=== PATIENT | female | born 1945 | race Caucasian/White ===

== ENCOUNTER 2017-07-12 14:25 | Emergency (ER) | payer MEDICARE, BC ==
--- NOTE | 2017-07-12 14:40 | Emergency Department Record ---
History of Present Illness - General Chief Complaint: Numbness Stated Complaint: SLURRED SPEECH/ARM NUMBNESS Time Seen by Provider: 07/12/17 14:34 Mode of Arrival: Ambulatory - History of Present Illness Initial Comments: slurred speech and numbness in both arms more the left started 30 minutes ago and lasted for 15 minutes. Patient denies headache and no chest pain and not SOB and no abdominal pain. Onset/Timin -: Hour(s) Location: Left arm, Right arm, Speech History of same: No Place: Home Severity: Mild Quality: Improving, Numb Improves With: None Worsens With: None On Anticoagulants: No Associated Symptoms: Denies other symptoms Treatments Prior to Arrival: None - Deejay Coma Scale Eye Response: (4) Open spontaneously Motor Response: (6) Obeys commands Verbal Response: (5) Oriented [place] Total: 15 - Related Data Allergies/Adverse Reactions: Allergies Allergy/AdvReac Type Severity Reaction Status Date / Time Sulfa (Sulfonamide Allergy ANAPHYLAXIS Verified 07/12/17 14:27 Antibiotics) Travel Screening - Travel/Exposure Within Last 30 Days Have you traveled within the last 30 days?: No - Travel/Exposure Within Last Year Have you traveled outside the [place] in the last year?: No - Additonal Travel Details Have you been exposed to anyone with a communicable illness?: No - Travel Symptoms Symptom Screening: None Review of Systems Reviewed: No additional complaints except as noted below Constitutional: Reports: As per HPI. Denies: Chills, Fever, Malaise, Night sweats, Weakness, Weight change Eyes: Reports: As per HPI. Denies: Eye discharge, Eye pain, Photophobia, Vision change ENT: Reports: As per HPI. Denies: Congestion, Dental pain, Ear pain, Epistaxis , Hearing loss, Throat pain Respiratory: Reports: As per HPI. Denies: Cough, Dyspnea, Hemoptysis, Stridor, Wheezes Cardiovascular: Reports: As per HPI. Denies: Arrhythmia, Chest pain, Dyspnea on exertion, Edema, Murmurs, Orthopnea, Palpitations, Paroxysmal nocturnal dyspnea, Rheumatic Fever, Syncope Endocrine: Reports: As per HPI. Denies: Fatigue, Heat or cold intolerance, Polydipsia, Polyuria Gastrointestinal: Reports: As per HPI. Denies: Abdominal pain, Constipation, Diarrhea, Hematemesis, Hematochezia, Melena, Nausea, Vomiting Genitourinary: Reports: As per HPI. Denies: Abnormal menses, Discharge, Dyspareunia, Dysuria, Frequency, Hematuria, Incontinence, Retention, Urgency Musculoskeletal: Reports: As per HPI. Denies: Arthralgia, Back pain, Gout, Joint swelling, Myalgia, Neck pain Skin: Reports: As per HPI. Denies: Bruising, Change in color, Change in hair/ nails, Lesions, Pruritus, Rash Neurological: Reports: As per HPI. Denies: Abnormal gait, Confusion, Headache, Numbness, Paresthesias, Seizure, Tingling, Tremors, Vertigo, Weakness Psychiatric: Reports: As per HPI. Denies: Anxiety, Auditory hallucinations, Depression, Homicidal thoughts, Suicidal thoughts, Visual hallucinations Hematological/Lymphatic: Reports: As per HPI. Denies: Anemia, Blood Clots, Easy bleeding, Easy bruising, Swollen glands Past Medical History - SOCIAL HISTORY Smoking Status: Current every day smoker Alcohol Use: None Drug Use: None - RESPIRATORY Hx Respiratory Disorders: No - CARDIOVASCULAR Hx Cardio Disorders: No - NEURO Hx Neuro Disorders: Yes Hx Headaches: Yes (hx Migraines) - GI Hx GI Disorders: No - Hx Genitourinary Disorders: No - ENDOCRINE Hx Endocrine Disorders: No - MUSCULOSKELETAL Hx Musculoskeletal Disorders: Yes Hx Arthritis: Yes Hx Back Injury: Yes - PSYCH Hx Psych Problems: Yes Hx Anxiety: Yes Hx Depression: Yes - HEMATOLOGY/ONCOLOGY Hx Hematology/Oncology Disorders: Yes Hx Cancer: Yes (uterine) Hx Chemotherapy: No Hx Radiation Therapy: No Family Medical History Any Significant Family History?: No Physical Exam - General General Appearance: Alert, Oriented x3, Cooperative, No acute distress - Head Head exam: Normal inspection - Eye Eye exam: Normal appearance, PERRL Pupils: Normal accommodation - ENT ENT exam: Normal exam, Mucous membranes moist, Normal external ear exam, Normal orophraynx, TM's normal bilaterally Ear exam: Normal external inspection. negative: External canal tenderness Nasal Exam: Normal inspection. negative: Discharge, Sinus tenderness Mouth exam: Normal external inspection, Tongue normal Teeth exam: Normal inspection. negative: Dental caries Throat exam: Normal inspection. negative: Tonsillar erythema, Tonsillar exudate - Neck Neck exam: Normal inspection, Full ROM. negative: Tenderness - Respiratory Respiratory exam: Normal lung sounds bilaterally. negative: Respiratory distress - Cardiovascular Cardiovascular Exam: Regular rate, Normal rhythm, Normal heart sounds - GI/Abdominal GI/Abdominal exam: Soft, Normal bowel sounds. negative: Tenderness - Rectal Rectal exam: Deferred - exam: Deferred - Extremities Extremities exam: Normal inspection, Full ROM, Normal capillary refill. negative: Tenderness - Back Back exam: Reports: Normal inspection, Full ROM. Denies: Muscle spasm, Rash noted, Tenderness - Neurological Neurological exam: Alert, Normal gait, Oriented X3, Reflexes normal - Psychiatric Psychiatric exam: Normal affect, Normal mood - Skin Skin exam: Dry, Intact, Normal color, Warm Course Vital Signs 07/12/17 14:29 Temperature 97.5 F L Pulse Rate 78 Respiratory 20 Rate Blood Pressure 137/63 Pulse Ox 98 - Reevaluation(s) Reevaluation #1: patient feels completely better. no numbness and no speech problems 07/12/17 16:04 Reevaluation #2: neuro check negative glascow 15 07/12/17 16:06 Medical Decision Making - Data Complexity MDM Data: Labs Ordered and/or Reviewed, X-Ray Ordered and/or Reviewed (CT of head no acute changes and chest xray COPD) - Lab Data Result diagrams: 07/12/17 14:50 07/12/17 14:50 Disposition Clinical Impression: TIA (transient ischemic attack) Qualifiers: Transient cerebral ischemia type: unspecified Qualified Code(s): G45.9 - Transient cerebral ischemic attack, unspecified Disposition: Home, Self-Care Condition: (1) Good Instructions: Transient Ischemic Attack (ED) Additional Instructions: follow up with family in 5 days to 7 days aspirin 81 mg per day Forms: Patient Portal Access Time of Disposition: 16:11 Quality - Quality Measures Quality Measures: N/A - Blood Pressure Screening Does Patient Have Any of the Following: No Blood Pressure Classification: Pre-Hypertensive BP Reading Systolic Measurement: 137 Diastolic Measurement: 63 Screening for High Blood Pressure: < Pre-Hypertensive BP, F/U Documented > [ G8950] Pre-Hypertensive Follow-up Interventions: Referral to alternative/primary care provider.
[2017-07-12 15:08] LABS: BASO % 0.2 % (0-6); EOS % 0.5 % (0-6); GRAN % 65.1 % (47-80); HEMATOCRIT 42.6 % (35.0-47.0); HEMOGLOBIN 14.3 gm/dl (11.6-16.0); LYMPH % 23.3 % (16-45); MEAN CELL VOLUME 93.2 fl (81-97); MEAN CORPUSCULAR HEMOGLOBIN 31.3 pg (27-33); MEAN CORPUSCULAR HGB CONC 33.6 g/dl (32-36); MONO % 10.9 % (0-9); PLATELET COUNT 349 K/uL (130-400); RED BLOOD COUNT 4.57 M/uL (3.80-5.40); RED CELL DISTRIBUTION WIDTH 13.3 % (11.5-14.5); WHITE BLOOD COUNT W/O DIFF 8.4 K/uL (4.2-12.2)
[2017-07-12 15:21] LABS: BLOOD UREA NITROGEN 8 mg/dL (8-23); CREATININE 0.9 mg/dL (0.5-0.9); EST GLOMERULAR FILTRATION RATE > 60 mL/min
[2017-07-12 15:23] LABS: PARTIAL THROMBOPLASTIN TIME 32.6 SECONDS (24.5-39.1); PROTHROMBIN TIME (PATIENT) 11.1 SECONDS (9.5-12.1)
[2017-07-12 15:24] LABS: GLUCOSE,RANDOM 102 mg/dL (74-109)
[2017-07-12] MEDS ORDERED: ASPIRIN 81 MG CHEWABLE TABLET PO ONE (16:04)
--- NOTE | 2017-07-14 08:37 | RADIOLOGY REPORT ---
EXAM: CHEST, TWO VIEWS HISTORY: SLURRED SPEECH, NUMBNESS BOTH ARMS. TECHNIQUE: PA and lateral views of the chest were obtained. Comparison: Two view chest 09/15/12. FINDINGS: The heart size is normal. The lungs appear somewhat hyperinflated suggesting underlying COPD. No definite acute infiltrate is seen and no pleural effusion or pneumothorax evident. Mild apical pleural thickening bilaterally. Mild spurring in the spine. IMPRESSION: 1. HYPERINFLATION SUGGESTING COPD. 2. NO ACUTE INFILTRATE EVIDENT. 3. APICAL PLEURAL THICKENING BILATERALLY. JOB NUMBER: [id number] [facility]
--- NOTE | 2017-07-14 08:41 | CT SCAN REPORT ---
EXAM: HEAD CT HISTORY: SLURRED SPEECH AND NUMBNESS BOTH ARMS. TECHNIQUE: Axial CT scan of the head was performed without IV contrast. Comparison: None. FINDINGS: No definite acute intracranial hemorrhage identified. No focal mass effect or midline shift apparent. Mild generalized atrophy with some chronic appearing deep white matter changes, nonspecific but likely representing some chronic small vessel deep white matter ischemic disease. No definite acute infarct or intracranial mass lesion seen. Mild deviation of the nasal septum to the left. IMPRESSION: 1. MILD GENERALIZED ATROPHY WITH SOME MILD CHRONIC APPEARING DEEP WHITE MATTER CHANGES. 2. NO ACUTE INTRACRANIAL HEMORRHAGE OR FOCAL MASS EFFECT EVIDENT. JOB NUMBER: [id number] [facility]
== END 2017-07-12 16:31 | disposition home or self-care (01) ==
LOC: ER 14:25
DX: G45.9 Transient cerebral ischemic attack, unspecified (principal); F17.210 Nicotine dependence, cigarettes, uncomplicated
CPT/HCPCS: 70450; 71046; 80048; 85025; 85610; 85730; 93005; 93010; 99284

== ENCOUNTER 2018-12-13 14:35 | Emergency (ER) | payer MEDICARE, BC ==
[2018-12-13] MEDS ORDERED: HYDROCODONE/APAP 5/325MG TABLET PO ONE (15:25)
--- NOTE | 2018-12-13 15:27 | Emergency Department Record ---
History of Present Illness - General Chief complaint: Extremity Problem Stated complaint: FALL/L WRIST INJURY Time Seen by Provider: 12/13/18 14:44 Source: Patient Mode of Arrival: Ambulatory Limitations: No limitations - History of Present Illness Initial comments: The patient is here due to tripping and falling and injuring her L wrist. She denies any other injuries and did not hit her head or hurt her neck. The patient is not on any blood thinners. MD Complaint: Extremity pain Onset/Timin -: Minutes(s) Location: Left, Arm History of Same: No Severity scale (1-10): 10 Quality: Aching Consistency: Constant Improves with: Cold therapy, Immobilization Worsens with: Exertion, Palpation Associated Symptoms: Denies other symptoms - Related Data Home Medications Medication Instructions Recorded Confirmed Last Taken Duloxetine HCl 12/13/18 Unknown Duloxetine HCl 30 mg PO DAILY 12/13/18 12/13/18 12/13/18 Meloxicam 15 mg PO DAILY 12/13/18 12/13/18 12/13/18 Previous Rx's Medication Instructions Recorded Hydrocodone/Acetaminophen [[place] 1 each PO QID #12 tablet 12/13/18 5-325 Tablet] Allergies Allergy/AdvReac Type Severity Reaction Status Date / Time Sulfa (Sulfonamide Allergy ANAPHYLAXIS Verified 12/13/18 14:44 Antibiotics) Travel Screening - Travel/Exposure Within Last 30 Days Have you traveled within the last 30 days?: No - Travel/Exposure Within Last Year Have you traveled outside the [place] in the last year?: No - Additonal Travel Details Have you been exposed to anyone with a communicable illness?: No - Travel Symptoms Symptom Screening: None Review of Systems Constitutional: Denies: Chills, Fever Eyes: Denies: Eye discharge ENT: Denies: Congestion Respiratory: Denies: Cough, Dyspnea Past Medical History - SOCIAL HISTORY Smoking Status: Current every day smoker Alcohol Use: None Drug Use: None - RESPIRATORY Hx Respiratory Disorders: No - CARDIOVASCULAR Hx Cardio Disorders: No - NEURO Hx Neuro Disorders: Yes Hx Headaches: Yes (hx Migraines) - GI Hx GI Disorders: No - Hx Genitourinary Disorders: No - ENDOCRINE Hx Endocrine Disorders: No - MUSCULOSKELETAL Hx Musculoskeletal Disorders: Yes Hx Arthritis: Yes Hx Back Injury: Yes - PSYCH Hx Psych Problems: Yes Hx Anxiety: Yes Hx Depression: Yes - HEMATOLOGY/ONCOLOGY Hx Hematology/Oncology Disorders: Yes Hx Cancer: Yes (uterine) Hx Chemotherapy: No Hx Radiation Therapy: No Family Medical History Any Significant Family History?: No Physical Exam - General General Appearance: Alert, Oriented x3, Cooperative, No acute distress - Head Head exam: Atraumatic, Normocephalic, Normal inspection - Eye Eye exam: Normal appearance, PERRL - Neck Neck exam: Normal inspection, Full ROM. negative: Tenderness (There is no Cspine tenderness.) - Respiratory Respiratory exam: Normal lung sounds bilaterally. negative: Respiratory distress - Cardiovascular Cardiovascular Exam: Regular rate, Normal rhythm, Normal heart sounds - GI/Abdominal GI/Abdominal exam: Soft, Normal bowel sounds. negative: Tenderness - Extremities Extremities exam: Tenderness (There is mild swelling to the L distal radius with mod tenderness. The L hand is NVI with normal sensation and pulses.). negative: Normal inspection, Full ROM - Neurological Neurological exam: Alert, Normal gait. negative: Abnormal gait, Motor sensory deficit Course Vital Signs 12/13/18 14:48 Temperature 97.3 F L Pulse Rate 90 Respiratory 20 Rate Blood Pressure 143/80 Pulse Ox 97 - Reevaluation(s) Reevaluation #1: I did discuss the need to splint the L wrist with the patient and the need for referral to Dr. Boyce in the [facility]. The patient understands and agrees to the plan. 12/13/18 15:29 Medical Decision Making - Data Complexity MDM Data: X-Ray Ordered and/or Reviewed - Radiology Data Radiology results: Report reviewed (L wrist: Distal L radius and ulna fx with minimal angulation and impaction. ) Disposition Disposition: Discharge Clinical Impression: Wrist fracture, left Qualifiers: Encounter type: initial encounter Fracture type: closed Qualified Code(s): S62.102A - Fracture of unspecified carpal bone, left wrist, initial encounter for closed fracture Disposition: Home, Self-Care Condition: (2) Stable Instructions: Wrist Fracture in Adults (ED) Additional Instructions: Please ice and elevate the L wrist and wear the splint at all times. Use the [place] for pain and please see Dr. Boyce in the [facility] next week. Return to the ER for any worsening pain, numbness, or fever. Prescriptions: Hydrocodone/Acetaminophen [[place] 5-325 Tablet] 1 each PO QID #12 tablet Referrals: [facility] [Provider Group] Forms: Patient Portal Access Time of Disposition: 15:32 Quality - Quality Measures Quality Measures: N/A - Blood Pressure Screening View Details: Yes Does Patient Have Any of the Following: No Blood Pressure Classification: Hypertensive Reading Systolic Measurement: 142 Diastolic Measurement: 77 Screening for High Blood Pressure: < First Hypertensive BP, F/U Documented > [G8950] First Hypertensive Follow-up Interventions: Referral to alternative/primary care provider.
--- NOTE | 2018-12-13 15:58 | RADIOLOGY REPORT ---
EXAMINATION: Left Wrist Complete, Minimum Three Views EXAM DATE: 12/13/2018 3:15 PM TECHNIQUE: PA, lateral, and oblique images of the left wrist obtained. INDICATION: injury COMPARISON: None ENCOUNTER: Initial FINDINGS: There is diffuse bony demineralization. There is transverse fracture of distal left radius as well as fracture of the ulnar styloid both minimally displaced. There may be intra-articular extension at th e radial ulnar joint. There is mild soft tissue swelling. No additional fracture is seen. IMPRESSION: Fractures distal left radius and ulna as above. Dictated by: Alan Donohue MD on 12/13/2018 3:54 PM. .
== END 2018-12-13 15:58 | disposition home or self-care (01) ==
LOC: ER 14:35
DX: S52.502A Unspecified fracture of the lower end of left radius, initial encounter for closed fracture (principal); S52.612A Displaced fracture of left ulna styloid process, initial encounter for closed fracture; W01.198A Fall on same level from slipping, tripping and stumbling with subsequent striking against other object, initial encounter; F17.210 Nicotine dependence, cigarettes, uncomplicated
CPT/HCPCS: 99284

== ENCOUNTER 2018-12-16 15:53 | Emergency (ER) | payer MEDICARE, BC ==
--- NOTE | 2018-12-16 16:34 | Emergency Department Record ---
History of Present Illness - General Chief complaint: Extremity Problem Stated complaint: RECHECK Time Seen by Provider: 12/16/18 16:31 Source: Patient Mode of Arrival: Ambulatory Limitations: No limitations - History of Present Illness Initial comments: The patient is here for recheck due to having suffered a L distal radius and ulna fx 3 days ago and being splinted here in the ER. Now she feels the splint may be cutting into her arm. She denies any numbness or tingling. MD Complaint: Extremity pain Onset/Timin -: Days(s) Location: Left, Forearm Severity scale (1-10): 7 Quality: Aching - Related Data Previous Rx's Medication Instructions Recorded Hydrocodone/Acetaminophen [[place] 1 each PO QID #12 tablet 12/13/18 5-325 Tablet] Allergies Allergy/AdvReac Type Severity Reaction Status Date / Time Sulfa (Sulfonamide Allergy ANAPHYLAXIS Verified 12/16/18 16:09 Antibiotics) Travel Screening - Travel/Exposure Within Last 30 Days Have you traveled within the last 30 days?: No - Travel/Exposure Within Last Year Have you traveled outside the [place] in the last year?: No - Additonal Travel Details Have you been exposed to anyone with a communicable illness?: No - Travel Symptoms Symptom Screening: None Review of Systems Constitutional: Denies: Chills, Fever Past Medical History - SOCIAL HISTORY Smoking Status: Current every day smoker Alcohol Use: None, Rare Drug Use: None - RESPIRATORY Hx Respiratory Disorders: No - CARDIOVASCULAR Hx Cardio Disorders: No - NEURO Hx Neuro Disorders: Yes Hx Headaches: Yes (hx Migraines) - GI Hx GI Disorders: No - Hx Genitourinary Disorders: No - ENDOCRINE Hx Endocrine Disorders: No - MUSCULOSKELETAL Hx Musculoskeletal Disorders: Yes Hx Arthritis: Yes Hx Back Injury: Yes - PSYCH Hx Psych Problems: Yes Hx Anxiety: Yes Hx Depression: Yes - HEMATOLOGY/ONCOLOGY Hx Hematology/Oncology Disorders: Yes Hx Cancer: Yes (uterine) Hx Chemotherapy: No Hx Radiation Therapy: No Family Medical History Any Significant Family History?: Yes Physical Exam - General General Appearance: Alert, Cooperative, No acute distress - Head Head exam: Atraumatic - Eye Eye exam: Normal appearance - Extremities Extremities exam: negative: Normal inspection (The L wrist area is mildly swollen with no blistering or abrasions. The L hand is NVI with no pain with ROM. The swelling at this time is mild and there are no signs of any compartment syndrome.) Course Vital Signs 12/16/18 16:02 Temperature 97.9 F Pulse Rate 77 Respiratory 16 Rate Blood Pressure 138/78 Pulse Ox 97 - Reevaluation(s) Reevaluation #1: The patient's splint was padded and re-applied with great resolution of the patient's complaint. She is ready for home. 12/16/18 16:49 Disposition Disposition: Discharge Clinical Impression: Wrist fracture, left Qualifiers: Encounter type: subsequent encounter Fracture type: closed Fracture healing: with routine healing Qualified Code(s): S62.102D - Fracture of unspecified carpal bone, left wrist, subsequent encounter for fracture with routine healing Condition: (2) Stable Instructions: Wrist Fracture in Adults (ED) Additional Instructions: Please ice and elevate the L arm when possible and see Dr. Boyce in the Specialty clinic on Mon as planned. Forms: Patient Portal Access Time of Disposition: 16:49 Quality - Quality Measures Quality Measures: N/A - Blood Pressure Screening View Details: Yes Does Patient Have Any of the Following: No Blood Pressure Classification: Pre-Hypertensive BP Reading Systolic Measurement: 138 Diastolic Measurement: 78 Screening for High Blood Pressure: < Pre-Hypertensive BP, F/U Documented > [G8950] Pre-Hypertensive Follow-up Interventions: Referral to alternative/primary care provider.
== END 2018-12-16 16:56 | disposition home or self-care (01) ==
LOC: ER 15:53
DX: S62.102D Fracture of unspecified carpal bone, left wrist, subsequent encounter for fracture with routine healing (principal)
CPT/HCPCS: 99282